=== PATIENT | female | born 1980 | race Caucasian/White ===

== ENCOUNTER 2017-03-19 00:10 | Observation (INO) | payer MEDICAID, OTHER ==
[~2017-03-19] VITALS: Ht 152.4 cm; Wt 49.0 kg
[2017-03-19] MEDS ORDERED: FERR-252 PO (00:59)
[2017-03-19 01:32] VITALS: BP 116/69
[2017-03-19 01:37] LABS: ANION GAP 13.5 (8-16); CARBON DIOXIDE 22.1 mmol/L (21-32); CREATININE 0.6 mg/dL (0.6-1.3); POTASSIUM 3.6 mmol/L (3.5-5.1)
[2017-03-19 01:44] LABS: ALBUMIN 2.2 g/dL (3.4-5.0); TOTAL BILIRUBIN 0.1 mg/dL (0.0-1.0)
== END 2017-03-19 05:40 | disposition home or self-care (01) ==
LOC: MLD 00:10
PROVIDERS: ADMIT Obstetrics & Gynecology; ATTEND Obstetrics & Gynecology
DX: O99.613 Diseases of the digestive system complicating pregnancy, third trimester (principal); K82.4 Cholesterolosis of gallbladder; O26.833 Pregnancy related renal disease, third trimester; N13.2 Hydronephrosis with renal and ureteral calculous obstruction; O26.893 Other specified pregnancy related conditions, third trimester; N28.89 Other specified disorders of kidney and ureter; Z3A.32 32 weeks gestation of pregnancy
CPT/HCPCS: 36415; 76705; 76805; 80053; 81000; 82150; 83690; G0378; Q0092

== ENCOUNTER 2017-04-23 19:10 | Observation (INO) | payer OTHER ==
[~2017-04-23] VITALS: Ht 154.9 cm; Wt 48.5 kg
[~2017-04-23 19:10] MED LIST: FERR-252 PO
[2017-04-23] MEDS ORDERED: NALBUPHINE 10 MG/ML AMP IM ONE ×2 (19:50→20:25)
[2017-04-23] MEDS ORDERED: PREN-546 PO (20:01)
[2017-04-23 20:02] VITALS: BP 105/70
== END 2017-04-23 23:50 | disposition home or self-care (01) ==
LOC: MLD 19:10
PROVIDERS: ADMIT Obstetrics & Gynecology; ATTEND Obstetrics & Gynecology
DX: O46.93 Antepartum hemorrhage, unspecified, third trimester (principal); O62.9 Abnormality of forces of labor, unspecified; Z3A.35 35 weeks gestation of pregnancy
CPT/HCPCS: 76805; 81000; G0378; Q0092

== ENCOUNTER 2017-05-01 12:00 | Inpatient (IN) | payer OTHER ==
[~2017-05-01] VITALS: Ht 154.9 cm; Wt 50.8 kg
[~2017-05-01 12:00] MED LIST changes: +PREN-546 PO
[2017-05-01] MEDS ORDERED: LACTATED RINGERS 1,000 ML IV SCH (12:17)
[2017-05-01] MEDS ORDERED: OXYTOCIN 20 UNITS in LACTATED RINGERS 1,000 ML IV SCH (12:20)
[2017-05-01] MEDS ORDERED: PROMETHAZINE 25 MG/ML VIAL IVP PRN (12:20)
[2017-05-01] MEDS ORDERED: METHYLERGONOVINE 0.2 MG/ML AMP IM PRN ×2 (12:20→23:40)
[2017-05-01] MEDS ORDERED: OXYTOCIN 10 UNITS/ML VIAL IM SCH (12:20)
[2017-05-01] MEDS ORDERED: CARBOPROST 250 MCG/ML AMP IM PRN (12:20)
[2017-05-01] MEDS ORDERED: NALBUPHINE HYDROCHLORIDE 10 MG/ML VIAL IVP PRN (12:20)
[2017-05-01 12:44] VITALS: BP 119/77
[2017-05-01 12:53] LABS: BASOPHILS # (AUTO) 0.1 K/uL (0.00-0.22); BASOPHILS % (AUTO) 1.1 % (0.0-2.0); EOSINOPHILS # (AUTO) 0.1 K/uL (0-0.4); EOSINOPHILS % (AUTO) 0.9 % (0.0-4.0); HEMATOCRIT 38.2 % (36-48); HEMOGLOBIN 12.9 g/dL (12.0-16.0); LYMPHOCYTES # (AUTO) 1.5 K/uL (2.5-16.5); LYMPHOCYTES % (AUTO) 16.1 % (20.5-51.1); MEAN CORPUSCULAR HEMOGLOBIN 29 pg (27-31); MEAN CORPUSCULAR HGB CONC 34 g/dL (33-37); MEAN CORPUSCULAR VOLUME 86 fL (80-94); MONOCYTES # (AUTO) 0.6 K/uL (0.8-1.0); MONOCYTES % (AUTO) 6.6 % (1.7-9.3); NEUTROPHILS # (AUTO) 6.8 K/uL (1.8-7.7); NEUTROPHILS % (AUTO) 75.3 % (42.2-75.2); PLATELET COUNT (AUTO) 214 K/uL (140-450); RED BLOOD CELL COUNT(AUTO) 4.43 MIL/uL (4.20-5.40); RED CELL DISTRIBUTION WIDTH 15.9 % (11.6-13.7); WHITE BLOOD COUNT (AUTO) 9.1 K/uL (4.8-10.8)
[2017-05-01 12:58] LABS: BILIRUBIN,URINE NEGATIVE (NEGATIVE); BLOOD, URINE NEGATIVE (NEGATIVE); COLOR,URINE YELLOW (YELLOW); LEUKOCYTE ESTERASE ,URINE TRACE (NEGATIVE); PH,URINE 6.5 (5.0-9.0); UGLUCOSE NEGATIVE (NEGATIVE)
[2017-05-01 13:02] LABS: BARBITURATE, URINE POS. ng/ml (NEG <=200); BENZODIAZEPINE, URINE NEG. ng/mL (NEG <=200); CANNABINOID, URINE NEG. ng/mL (NEG <=50); COCAINE, URINE NEG. ng/mL (NEG <=300); OPIATE, URINE NEG. ng/mL (NEG <=2000); PHENCYCLIDINE SCREEN,URINE NEG. ng/mL (NEG <=25)
[2017-05-01 13:07] LABS: APPEARANCE,URINE HAZY (CLEAR); RBC,URINE 0-5 (RARE) /HPF (0-5); WBC,URINE 0-5 (RARE) /HPF (0-5)
[2017-05-01 13:08] LABS: NITRITE, URINE POSITIVE (NEGATIVE)
[2017-05-01 13:21] LABS: CARBON DIOXIDE 20.7 mmol/L (21-32); CREATININE 0.7 mg/dL (0.6-1.3); POTASSIUM 3.7 mmol/L (3.5-5.1)
[2017-05-01 13:27] LABS: ALBUMIN 2.3 g/dL (3.4-5.0); TOTAL BILIRUBIN 0.2 mg/dL (0.0-1.0)
[2017-05-01] MEDS ORDERED: MISOPROSTOL 25 MCG TAB VG SCH (16:00)
[2017-05-01] MEDS ORDERED: NALBUPHINE HYDROCHLORIDE 10 MG/ML VIAL ONE (19:09)
[2017-05-01] MEDS ORDERED: BUPIVACAINE 0.125%/NS PREMIX 250 ML ONE (19:27)
[2017-05-01] MEDS ORDERED: OXYTOCIN 10 UNITS/ML VIAL ONE (22:25)
[2017-05-01] MEDS ORDERED: METHYLERGONOVINE 0.2 MG TAB PO PRN (23:40)
[2017-05-01] MEDS ORDERED: MEASLES, MUMPS, AND RUBELLA 1 VIAL SQVAC PRN (23:40)
[2017-05-01] MEDS ORDERED: BENZOCAINE/MENTHOL 20%-0.5% 60 GM CAN TP PRN (23:40)
[2017-05-01] MEDS ORDERED: HYDROcodone/APAP 5/325 MG 1 TAB TAB PO PRN (23:40)
[2017-05-01] MEDS ORDERED: TEMAZEPAM 15 MG CAP PO PRN (23:40)
[2017-05-01] MEDS ORDERED: OXYTOCIN 10 UNITS/ML VIAL IM PRN (23:40)
[2017-05-01] MEDS ORDERED: oxyCODONE/APAP 5/325 MG 1 TAB TAB PO PRN (23:40)
[2017-05-01] MEDS ORDERED: SODIUM PHOSPHATE 118 ML ENEM RC PRN (23:40)
[2017-05-02 06:01] LABS: HEMATOCRIT 34.7 % (36-48); HEMOGLOBIN 11.9 g/dL (12.0-16.0)
--- NOTE | 2017-05-02 08:53 | NUR ---
PATIENT HAS BEEN SCREENED AND CATEGORIZED LOW NUTRITION RISK. PATIENT WILL BE SEEN WITHIN 7 DAYS OF ADMISSION. 05/07/[address]
[2017-05-02] MEDS ORDERED: INFLUENZA VIRUS VACCINE QUAD 0.5 ML SYR IMVAC SCH (20:45)
[2017-05-02] MEDS ORDERED: DOCUSATE SOD/SENNA 50/8.6 MG 1 TAB PO SCH ×2 (21:00)
== END 2017-05-03 21:25 | disposition home or self-care (01) | DRG 560 ==
LOC: MLD 12:00 → MFCC 05-02 03:05
PROVIDERS: ADMIT Obstetrics & Gynecology; ATTEND Obstetrics & Gynecology
PROC: 10E0XZZ Delivery of Products of Conception, External Approach (ICD-10-PCS; principal; 2017-05-01)
PROC: 10907ZC Drainage of Amniotic Fluid, Therapeutic from Products of Conception, Via Natural or Artificial Opening (ICD-10-PCS; 2017-05-01)
PROC: 3E0P7VZ Introduction of Hormone into Female Reproductive, Via Natural or Artificial Opening (ICD-10-PCS; 2017-05-01)
PROC: 00HU33Z Insertion of Infusion Device into Spinal Canal, Percutaneous Approach (ICD-10-PCS; 2017-05-01)
PROC: 3E0R3BZ Introduction of Anesthetic Agent into Spinal Canal, Percutaneous Approach (ICD-10-PCS; 2017-05-01)
DX: O80 Encounter for full-term uncomplicated delivery (principal); Z37.0 Single live birth; Z3A.39 39 weeks gestation of pregnancy; Z28.21 Immunization not carried out because of patient refusal
CPT/HCPCS: 36415; 59409; 80053; 80305; 81001; 85018; 85025; 86592; 86886; 86900; 86901; 87086; J2300; J2590; J3490; J7120